=== PATIENT | male | born 1985 | race Caucasian/White ===

== ENCOUNTER 2017-07-23 13:21 | Emergency (ER) | payer BC ==
[~2017-07-23] VITALS: Ht 185.4 cm; Wt 124.7 kg
[~2017-07-23 13:21] MED LIST: CEPH500 PO; OXYACE5T PO; SULTRIDS PO
[2017-07-23] MEDS ORDERED: IBUP800 PO (14:30)
[2017-07-23] MEDS ORDERED: Norco 5-325 Ta1 EACH PO (14:30)
== END 2017-07-23 14:39 | disposition home or self-care (01) ==
LOC: ER 13:21
DX: S93.401A Sprain of unspecified ligament of right ankle, initial encounter (principal); F17.220 Nicotine dependence, chewing tobacco, uncomplicated; W01.0XXA Fall on same level from slipping, tripping and stumbling without subsequent striking against object, initial encounter
CPT/HCPCS: 73610; 73630; 99283